=== PATIENT | female | born 1960 ===

== ENCOUNTER → 2017-03-11 | Day surgery (SDC) | payer OTHER ==
[~2017-03-11] MED LIST: ACETAMINOPHEN 325 MG TAB ONE; BUPIVACAINE HCL PF 0.75% 30 ML VIAL ONE; LACTATED RINGER'S 1000 ML INJ 1,000 ML ONE; LIDOCAINE 1.5%/EPINEPHrine 1:200,000 PF SOLN 30 ML AMP ONE; MIDAZOLAM HCL 5 MG/ML VIAL (1 ML) ONE; ONDANSETRON HCL 4 MG/2 ML VIAL IV PUSH ONE; PROPOFOL 200 MG/20 ML AMP IV ONE; ceFAZolin 2 GM PREMIX 50 ML ONE
--- NOTE | 2017-03-13 14:17 | MP ---
cc: MARISA ARNETT M.D. DATE OF SURGERY: 03/11/2017. PREOPERATIVE DIAGNOSIS: 1. Right shoulder rotator cuff tear. 2. Right shoulder impingement syndrome. 3. Right shoulder labral tear. POSTOPERATIVE DIAGNOSIS: 1. Right shoulder rotator cuff tear. 2. Right shoulder impingement syndrome. 3. Right shoulder labral tear. OPERATIVE PROCEDURE PERFORMED: 1. Right shoulder arthroscopic rotator cuff repair. 2. Right shoulder arthroscopic subacromial decompression. 3. Right shoulder arthroscopic extensive debridement of labral tear. SURGEON: Dr. Marisa Arnett. SPORTS MEDICINE MASSEUR: Claudio Shelley ANESTHESIA: General with interscalene block. ESTIMATED BLOOD LOSS: Less than 10 cc. COMPLICATIONS: None. IMPLANTS USED: Arthrex. JUSTIFICATION FOR THE PROCEDURE: This patient is a 56-year-old female who injured the right shoulder. She had persistence of pain in regards to her condition and failed conservative treatment. Clinical exam as well as MRI confirmed the above-named findings. She was counseled as to the risks, benefits, and alternatives of the above-named proposed surgical procedure. She did wish to proceed with surgery. DESCRIPTION OF THE PROCEDURE IN DETAIL: A written consent was obtained. The patient was identified by name and taken to the operating room and placed supine on the operating room and general anesthesia was administered as well as 2 grams of IV Ancef. The patient was carefully turned to the left lateral decubitus position. A lateral arm roll was placed. All bony prominences and pressure points were well padded. The patient's neck position was carefully monitored and kept neutral. An arthroscopic arm infante was gently applied to the right upper extremity with 10 pounds traction placed. The right shoulder was prepped and draped using isopropyl alcohol, Hibiclens solution and DuraPrep solution. After a time-out was performed, the standard anterior, posterior and glenohumeral arthroscopic portals were established. The glenohumeral joint revealed extensive evidence of labral tearing along the anterior, superior and posterior portions. An arthroscopic shaver was introduced from the anterior portal and extensive debridement of the labrum was performed. The debridement included the anterior three o'clock position up to the twelve o'clock position and back down to the posterior nine o'clock position. There was evidence of full-thickness tearing along the anterior leading edge of the supraspinatus tendon which was also debrided. Attention was turned to the subacromial space where there was evidence of significant impingement with bursitis. An arthroscopic shaver was introduced from a lateral portal. A subacromial decompression was performed. The shaver was used to make an extensive bursectomy. The arthroscopic bur was used to perform an acromioplasty and the cautery device was used to release the coracoacromial ligament. The bur was used to decorticate the greater tuberosity in preparation for rotator cuff tendon repair. The Arthrex scorpion device was used to shuttle #2 FiberTape sutures through the anterior and posterior portions of the torn tendon in a horizontal mattress pattern. The sutures were then placed through the eyelet of an Arthrex 4.7 Bio SwiveLock anchors. The sutures were tensioned and the anchor was inserted into the greater tuberosity for rotator cuff tendon repair. The repair was probed and noted to have good stability and fixation. At the conclusion of the surgical procedure, the arthroscopic portals were closed with 3-0 Prolene sutures. Sterile dressings were applied. The patient was placed into a sling and swathe immobilizer. She tolerated the procedure well. No intraoperative complications were noted. NOTE: Ollie Dasilva, physician assistant manager quality management certified was present during the entire procedure to include patient positioning and the procedure itself. The medical necessity of a physician assistant manager quality management was indicated in this case due to the complexity of the procedure itself. He assisted with appropriate manipulation of the arm and also manipulation of the camera. He assisted with shuttling of sutures and also implantation of suture anchor for the purposes of rotator cuff tendon repair. MD LOU Dickens/SHERRIE /11:00 AM /2:12 PM
== END | disposition home or self-care (01) ==
LOC: ESDC 08:10
PROVIDERS: ATTEND Orthopaedic Surgery Sports Medicine
DX: M75.121 Complete rotator cuff tear or rupture of right shoulder, not specified as traumatic (principal); M75.41 Impingement syndrome of right shoulder; S43.401A Unspecified sprain of right shoulder joint, initial encounter
CPT/HCPCS: 01630; 01991; 29823; 29826; 29827; 64417; C1713; J0690; J2250; J2405; J7120